=== PATIENT | female | born 1990 | race African-American/Black ===

== ENCOUNTER 2018-11-13 02:17 | Emergency (ER) | payer MEDICAID ==
[~2018-11-13] VITALS: Ht 162.6 cm; Wt 49.9 kg
[2018-11-13 03:43] LABS: Basophils # (auto) 0 uL; Eosinophils # (auto) 0 uL; Eosinophils % (auto) 0.9 % (0.0-7.0); Mean Corpuscular Hgb Conc. 32.4 g/dL (32.0-36.0); Monocytes # (auto) 0.2 uL; Red Cell Distribution Width 13.7 % (11.8-14.3)
[2018-11-13 03:45] LABS: Basophils % (auto) 0.8 % (0.0-2.0); Hematocrit 36.3 % (36.0-46.0); Hemoglobin 11.8 g/dL (12.2-16.2); Lymphocytes # (auto) 1.8 uL; Lymphocytes % (auto) 53.8 % (10.0-50.0); Mean Corpuscular Hemoglobin 25.7 pg (28.0-32.0); Mean Corpuscular Volume 79.3 fL (80.0-100.0); Monocytes % (auto) 5.1 % (0.0-12.0); Neutrophils # (auto) 1.4 uL; Neutrophils % (auto) 39.4 % (37.0-80.0); Platelet Count (auto) 240 10^3/uL (140-450); Red Blood Cells 4.58 10^6/uL (4.0-5.20); White Blood Cell 3.4 10^3/uL (4.4-10.8)
[2018-11-13 03:56] LABS: INR < 0.93 (0.9-1.15); Partial Thromboplastin Time 28.8 sec (23.64-32.05)
[2018-11-13 04:00] LABS: Albumin 3.7 g/dL (3.4-5.0); BUN/Creatinine Ratio 18.6; Calcium 8.5 mg/dL (8.5-10.1); Potassium 3.6 mmol/L (3.5-5.1)
[2018-11-13 04:02] LABS: Bilirubin, Total 0.1 mg/dL (0.2-1.0); Total Protein 7.5 g/dL (6.4-8.2)
[2018-11-13 06:43] LABS: Urine Bacteria MANY /hpf (None Seen); Urine Blood 1+ /uL (Negative); Urine Mucus FEW (None Seen); Urine Specific Gravity 1.031 (1.001-1.035); Urine WBC 9 /hpf (0 - 5)
[2018-11-13] MEDS ORDERED: SODIUM CHLORIDE 0.9% 1,000 ML IV ONE (07:59)
[2018-11-13] MEDS ORDERED: FOLIC ACID 1 MG TAB PO ONE (09:30)
[2018-11-13 10:00] VITALS: BP 116/65
== END 2018-11-13 11:56 | disposition home or self-care (01) ==
LOC: ER 02:24
DX: O23.41 Unspecified infection of urinary tract in pregnancy, first trimester (principal); Z3A.01 Less than 8 weeks gestation of pregnancy
CPT/HCPCS: 36415; 76801; 80053; 81001; 82150; 83690; 83735; 84702; 85025; 85610; 85730; 96360; 99284; J7030